=== PATIENT | female | born 1965 | race Two or more races ===

== ENCOUNTER 2018-09-11 13:42 | Emergency (ER) | payer OTHER ==
[~2018-09-11] VITALS: Ht 160 cm; Wt 66.2 kg
== END 2018-09-11 17:32 | disposition home or self-care (01) ==
LOC: ER 13:42
DX: B34.9 Viral infection, unspecified (principal)

== ENCOUNTER 2020-06-02 14:04 | Emergency (ER) | payer OTHER ==
[~2020-06-02] VITALS: Ht 160 cm; Wt 65.3 kg
== END 2020-06-02 22:22 | disposition home or self-care (01) ==
LOC: ER 14:04
DX: K29.60 Other gastritis without bleeding (principal); Z03.818 Encounter for observation for suspected exposure to other biological agents ruled out; R10.11 Right upper quadrant pain

== ENCOUNTER 2020-11-21 14:30 | Emergency (ER) | payer OTHER ==
[~2020-11-21] VITALS: Ht 160 cm; Wt 64.4 kg
[2020-11-21] MEDS ORDERED: BUTALBIT-ACETA1 EACH PO (19:06)
== END 2020-11-21 19:22 | disposition home or self-care (01) ==
LOC: ER 14:30
DX: G43.909 Migraine, unspecified, not intractable, without status migrainosus (principal)

== ENCOUNTER 2022-08-15 15:30 | Emergency (ER) | payer OTHER ==
[~2022-08-15] VITALS: Ht 160 cm; Wt 63.5 kg
[~2022-08-15 15:30] MED LIST: BUTALBIT-ACETA1 EACH PO
== END 2022-08-15 18:53 | disposition home or self-care (01) ==
LOC: ER 15:30
DX: L03.90 Cellulitis, unspecified (principal)

== ENCOUNTER 2023-01-31 11:38 | Inpatient (IN) | payer OTHER ==
[~2023-01-31] VITALS: Ht 160 cm; Wt 65.3 kg
== END 2023-02-03 16:47 | disposition home or self-care (01) | DRG 440 ==
LOC: ER 11:38 → MEDI 22:07
PROVIDERS: ADMIT Internal Medicine; ATTEND Internal Medicine
PROC: BW21YZZ Computerized Tomography (CT Scan) of Abdomen and Pelvis using Other Contrast (ICD-10-PCS; principal; 2023-01-31)
DX: K85.20 Alcohol induced acute pancreatitis without necrosis or infection (principal); K52.9 Noninfective gastroenteritis and colitis, unspecified

== ENCOUNTER 2024-06-13 09:17 | Emergency (ER) | payer OTHER ==
[~2024-06-13] VITALS: Ht 160 cm; Wt 65.3 kg
[2024-06-13] MEDS ORDERED: KETOROLAC TROMETHAMINE 30 MG VIAL IM STA (10:13)
[2024-06-13] MEDS ORDERED: ORPHENADRINE CITRATE 30 MG/ML AMPUL IM STA (10:14)
[2024-06-13 10:46] LABS: HEMOGLOBIN 15.3 g/dL (12.0-15.00); MEAN CELL VOLUME 90.5 fL (80.00-100.00); MEAN CORPUSCULAR HEMOGLOBIN 30.2 pg (27.00-32.0); MEAN CORPUSCULAR HGB CONC 33.4 g/dl (32.0-36.0); PLATELET COUNT 273 K/uL (150-450); RED BLOOD COUNT 5.08 M/uL (4.00-6.00); RED CELL DISTRIBUTION WIDTH 13.2 % (11.5-14.5)
[2024-06-13 11:03] LABS: URINE APPEARANCE Cloudy; URINE BILIRRUBIN Negative (NEGATIVE); URINE BLOOD Negative; URINE COLOR Dark Yellow; URINE GLUCOSE Negative (NEGATIVE); URINE KETONE Trace (NEGATIVE); URINE LEUKOCYTE Negative; URINE NITRATE Negative; URINE PROTEIN Negative (NEGATIVE)
[2024-06-13 11:07] LABS: URINE BACTERIA 444.7 uL (0.0-1933); URINE EPITHELIAL CELLS 21.1 uL (0.0-38.8); URINE RBC 6.1 uL (0.0-20.8); URINE WBC 6.1 uL (0.0-23.2)
[2024-06-13 11:21] LABS: CALCIUM 8.6 mg/dL (8.5-10.1); CREATININE SERUM 0.66 mg/dL (0.55-1.02); GFR 91.98; POTASSIUM 3.67 mEq/L (3.5-5.1)
[2024-06-13 11:22] LABS: URINE CAST 0.45 uL (0.0-1.40)
[2024-06-13 11:23] LABS: URINE CRYSTALS MODERATE /HPF
== END 2024-06-13 12:58 | disposition home or self-care (01) ==
LOC: ER 09:18
PROVIDERS: General Practice
DX: M54.9 Dorsalgia, unspecified (principal)